=== PATIENT | male | born 1940 | race Caucasian/White ===

== ENCOUNTER 2020-12-21 11:05 | Inpatient (IN) | payer OTHER ==
[~2020-12-21] VITALS: Ht 167.6 cm; Wt 65.9 kg
[2020-12-21 11:56] LABS: BASOPHILS ABSOLUTE AUTO 0.05 K/mm3 (0.00-0.23); BASOPHILS PERCENT AUTO 0 % (0-2); EOSINOPHILS ABSOLUTE AUTO 0.07 K/mm3 (0.00-0.68); EOSINOPHILS PERCENT AUTO 1 % (0-6); Hemoglobin 20.3 g/dL (13.5-17.5); IMMATURE GRAN ABSOLUTE AUTO 0.08 K/mm3 (0.00-0.10); IMMATURE GRAN PERCENT AUTO 1 % (0-1); LYMPHOCYTES PERCENT AUTO 10 % (21-46); MONOCYTES ABSOLUTE AUTO 1.08 K/mm3 (0.16-1.47); MONOCYTES PERCENT AUTO 9 % (4-13); Mean Corpuscular HGB 33.8 pg (26.0-34.0); Mean Corpuscular HGB Conc 33.6 g/dL (31.5-36.5); Mean Corpuscular Volume 101 fL (80-100); Mean Platelet Volume 10.2 fL (9.1-12.4); NEUTROPHILS ABSOLUTE AUTO 9.13 K/mm3 (1.96-9.15); NEUTROPHILS PERCENT AUTO 79 % (41-73); Platelet Count 164 K/mm3 (150-400); RDW Coefficient Variation 17.7 % (11.7-14.2); RDW Standard Deviation 62.4 fL (35.1-46.3); Red Blood Cell Count 6.01 M/mm3 (4.30-5.90); White Blood Cell Count 11.51 K/mm3 (4.00-11.30)
[2020-12-21 12:11] LABS: Hematocrit 60.4 % (37.0-53.0)
[2020-12-21 12:18] LABS: International Normalized Ratio 1.11; Prothrombin Time Results 11.9 Sec (9.7-11.5)
[2020-12-21 12:21] LABS: Alanine Aminotransfer (ALT/SGP 50 U/L (12-78); Albumin, Blood 3.7 g/dL (3.4-5.0); Albumin/Globulin Ratio 0.8 (0.8-1.8); Alk Phos 87 U/L (50-136); Anion Gap 13 mmol/L (6-16); Aspartate Aminotrans (AST/SGOT 61 U/L (12-37); Bilirubin, Total 1.3 mg/dL (0.1-1.0); Blood Urea Nitrogen 77 mg/dL (8-24); Bun/Creatinine Ratio 44.5 (12.0-20.0); CO2, Blood 28 mmol/L (21-32); Calcium, Blood 10.8 mg/dL (8.5-10.1); Chloride, Blood 109 mmol/L (98-108); Creatinine, Blood 1.73 mg/dL (0.60-1.20); Ethanol (Alcohol), Blood, Med <3 mg/dL; Globulin, Blood 4.9 g/dL (2.2-4.0); Glomerular Filtration Rate 38 (60-); Glucose, Blood 130 mg/dL (70-99); Magnesium, Blood 2.6 mg/dL (1.6-2.4); Potassium, Blood 3.8 mmol/L (3.5-5.5); Sodium, Blood 150 mmol/L (136-145); Total Protein, Blood 8.6 g/dL (6.4-8.2)
[2020-12-21 12:29] LABS: Troponin I 0.069 ng/mL (0.000-0.040)
[2020-12-21] MEDS ORDERED: Ramipril10 MG PO (15:23)
[2020-12-21 18:17] LABS: CPK Creatine Kinase 98 U/L (39-308)
[2020-12-21 21:07] LABS: Source, Urine Catheter
[2020-12-21 21:15] LABS: Appearance, Urine Clear (Clear); Blood, Urine 4+ (Neg); Color, Urine Yellow (P-Yellow); Glucose Qualitative, Urine 1+ (Neg); Ketones, Urine 1+ (Neg); Leukocyte Esterase, Urine 1+ (Neg); Nitrite, Urine Neg (Neg); Protein, Urine 2+ (Neg); Specific Gravity, Urine 1.015 (1.003-1.022); Urobilinogen, Urine 1+ (Normal)
[2020-12-21 21:21] LABS: Bilirubin, Urine 1+ (Neg)
[2020-12-21 21:26] LABS: Bacteria Mod /hpf; Squamous Epithelial Cells Few /hpf (Few)
[2020-12-21 21:40] LABS: U Amphetamine Screen Not Detected; U Barbituate Screen Not Detected; U Benzodiazapine Screen DETECTED; U Buprenorphine Screen Not Detected; U Cannabinoids Screen Not Detected; U Cocaine Screen Not Detected; U Methadone Screen Not Detected; U Methamphetamine Screen Not Detected; U Opiates Screen Not Detected; U Oxycodone Screen Not Detected; U Phencyclidine Screen Not Detected; U Propoxyphene Screen Not Detected
--- NOTE | 2020-12-22 05:52 | NUR ---
SHIFT SUMMARY NEW ER ADMIT THIS SHIFT (1999) A&O TO SELF ONLY (NOT ABLE TO ANSWER ADMIT QUESTIONS APPROP), GRISSOM PLACED IN ER (PER REPORT PT UNABLE TO VOID IN ED), HR TACHY (DR BURGOS NOTIFED) LOPRESS ADMIT, CIWA SCORES 13-17 THIS SHIFT, ATIVAN ADMIN PER JUL, MEDICATED FOR BP X1, SLEPT T/O THE NIGHT WAKING EASILY FOR CARE, SLEEPING AT THIS TIME, CALL LIGHT IN REACH, BED ALARM ACTIVE, WILL CONT TO MONITOR UNTIL REPORT GIVEN TO DAY RN.
[2020-12-22 05:54] LABS: BASOPHILS ABSOLUTE AUTO 0.04 K/mm3 (0.00-0.23); BASOPHILS PERCENT AUTO 0 % (0-2); EOSINOPHILS ABSOLUTE AUTO 0.24 K/mm3 (0.00-0.68); EOSINOPHILS PERCENT AUTO 3 % (0-6); Hematocrit 52.3 % (37.0-53.0); IMMATURE GRAN ABSOLUTE AUTO 0.06 K/mm3 (0.00-0.10); IMMATURE GRAN PERCENT AUTO 1 % (0-1); LYMPHOCYTES ABSOLUTE AUTO 0.97 K/mm3 (0.84-5.20); LYMPHOCYTES PERCENT AUTO 11 % (21-46); MONOCYTES ABSOLUTE AUTO 1.23 K/mm3 (0.16-1.47); MONOCYTES PERCENT AUTO 14 % (4-13); Mean Corpuscular HGB 32.6 pg (26.0-34.0); Mean Corpuscular HGB Conc 32.5 g/dL (31.5-36.5); Mean Corpuscular Volume 100 fL (80-100); Mean Platelet Volume 10.2 fL (9.1-12.4); NEUTROPHILS ABSOLUTE AUTO 6.52 K/mm3 (1.96-9.15); NEUTROPHILS PERCENT AUTO 72 % (41-73); Platelet Count 146 K/mm3 (150-400); RDW Coefficient Variation 16.3 % (11.7-14.2); RDW Standard Deviation 61.4 fL (35.1-46.3); Red Blood Cell Count 5.21 M/mm3 (4.30-5.90); White Blood Cell Count 9.06 K/mm3 (4.00-11.30)
[2020-12-22 06:18] LABS: Bun/Creatinine Ratio 46.3 (12.0-20.0); Calcium, Blood 9.6 mg/dL (8.5-10.1); Creatinine, Blood 1.34 mg/dL (0.60-1.20); Magnesium, Blood 2.2 mg/dL (1.6-2.4); Potassium, Blood 3.6 mmol/L (3.5-5.5)
--- NOTE | 2020-12-22 18:41 | NUR ---
PT RESTING IN BED, ORIENTED TO SELF ONLY, WITH INTERM TREMORS TREATED PER EMAR. PT OFFERED PO FLUIDS AND COUGHED EACH TIME. ST EVAL PLACED. NO FOOD OFFERED PT WAS NOT ELERT ENOUGHT TO TEST SWALLOW. SOFT WRIST RESTRAINTS DC'D NO AGGITATION WAS NOTED OR PULLING AT LINES. CWAS TO CONINUE. BED IN LOW POSITION AND CALL LIGHT WITHIN REACH. STAFF WILL CONTINUE TO MONITOR.
--- NOTE | 2020-12-22 18:45 | NUR ---
CONTACTED BY SON AND DAUGHTER THIS SHIFT. DAUGHTER CRIS CAN BE REACHED AT [phone]. NOTIFIED OF FAMILY WANTING A CALL.
--- NOTE | 2020-12-23 04:47 | NUR ---
SHIFT SUMMARY NO ACUTE CHANGES THIS SHIFT, CIWA'S CONT W/ATIVAN ADMIN X3, SPEECH INCOMPREHEN, NO PO MEDS GIVEN D/T AMS STATUS (ASP RISK), REPOS Q2 THIS SHIFT, PT APPEARS TO BE RESTING COMFORTABLE, CALL LIGHT IN REACH, BED ALARM ACTIVE, WILL CONT TO MONITOR UNTIL REPORT GIVEN TO DAY RN.
[2020-12-23 05:37] LABS: Hematocrit 47.1 % (37.0-53.0); Hemoglobin 15.8 g/dL (13.5-17.5); Mean Corpuscular HGB 33.4 pg (26.0-34.0); Mean Corpuscular HGB Conc 33.5 g/dL (31.5-36.5); Mean Corpuscular Volume 100 fL (80-100); Mean Platelet Volume 10.8 fL (9.1-12.4); Platelet Count 132 K/mm3 (150-400); RDW Coefficient Variation 15.7 % (11.7-14.2); RDW Standard Deviation 58.3 fL (35.1-46.3); Red Blood Cell Count 4.73 M/mm3 (4.30-5.90); White Blood Cell Count 7.82 K/mm3 (4.00-11.30)
[2020-12-23 05:54] LABS: BAND PERCENT MAN 12 % (0-8); BASOPHILS PERCENT MAN 0 % (0-2); EOSINOPHILS ABSOLUTE MAN 0.07 K/mm3 (0.00-0.68); EOSINOPHILS PERCENT MAN 1 % (0-6); LYMPHOCYTES ABSOLUTE MAN 1.17 K/mm3 (0.84-5.20); LYMPHOCYTES PERCENT MAN 15 % (21-46); MONOCYTES ABSOLUTE MAN 1.56 K/mm3 (0.16-1.47); MONOCYTES PERCENT MAN 20 % (4-13); SEG NEUTROPHILS PERCENT MAN 52 % (41-73); TOTAL CELLS COUNTED 100
[2020-12-23 06:39] LABS: Anion Gap 5 mmol/L (6-16); Blood Urea Nitrogen 38 mg/dL (8-24); Bun/Creatinine Ratio 35.8 (12.0-20.0); CO2, Blood 29 mmol/L (21-32); Calcium, Blood 8.8 mg/dL (8.5-10.1); Chloride, Blood 109 mmol/L (98-108); Creatinine, Blood 1.06 mg/dL (0.60-1.20); Glomerular Filtration Rate >60 (60-); Glucose, Blood 158 mg/dL (70-99); Potassium, Blood 3.5 mmol/L (3.5-5.5)
[2020-12-23 06:40] LABS: Sodium, Blood 143 mmol/L (136-145)
--- NOTE | 2020-12-23 19:19 | NUR ---
SHIFT SUMMARY PT RESTING QUIETLY AT START OF SHIFT, DURING REPORT. PT WOKE TO VERBAL AND TACTILE STIMULI. SPEECH GARBLED EVERY TIME AWAKE OR WHEN GIVING CARE. PT UNABLE TO FOLLOW ANY DIRECTIONS AT ALL FROM NRS STAFF, EUGENIA CORRAL, OR DR RAZO. PT'S DAUGHTER CALLED FOR UPDATE AND REQUESTED PT BE MADE DNR. DAUGHTER ALSO REQUESTED TO TALK TO DR RAZO. DR NOTIFIED AND PT MADE DNR. DR RAZO ABLE TO CALL DAUGHTER AND DISCUSSED PLAN OF CARE. PT THEN MADE COMFORT CARE. IVF'S AND TELE D/C'D. PT'S DAUGHTER, MARCOS TO BE HERE TOMORROW EVENING, SHE STATED. REPORT GIVEN TO ONCOMING RN. CALL LT IN REACH. BED ALARM ON FOR SAFETY.
--- NOTE | 2020-12-24 04:11 | NUR ---
SHIFT SUMMARY PATIENT ON COMFORT CARE. SOMNOLENT RESPONDING TO STERNAL RUB WITH GARBLED SPEECH. ABLE TO MAKE BASIC NEED KNOWN SUCH LIGHT ON/OFF. BEDREST. GRISSOM PATENT AND DRAINING TO GRAVITY. SON CALLED FOR UPDATE. NO S/SX OF PAIN, SOB, AND N/V. CALL LIGHT IN REACH. BED IN LOWEST POSITION. WILL CONTINUE TO MONITOR UNTIL DAY SHIFT NURSE ASSUME CARE.
--- NOTE | 2020-12-24 18:11 | NUR ---
SHIFT SUMMARY PT MORE AWAKE THIS AFTERNOON AND EVENING THAN HE HAS BEEN FOR A COUPLE OF DAYS. SPEECH IS MUCH MORE CLEAR WELL. VISITOR IN THIS AFTERNOON. DAUGHTER FROM [place] TO BE HERE SHORTLY. PT INFORMED AND GOT A BIG SMILE ON FACE. PT STILL NOT ABLE TO FOLLOW DIRECTIONS TO SWALLOW YET, WHEN ORAL CARE DONE. WAS CO-OP, BUT UNCOORDINATED IN TRYING TO OPEN OR CLOSE MOUTH. DENIED PAIN. DENIED NEEDS. ANSWERED YES WHEN EXPLAINING CALL LT. BED ALARM ON FOR SAFETY. CALL LT IN REACH.
--- NOTE | 2020-12-24 19:41 | NUR ---
PT'S DAUGHTER MARCOS HERE TO SEE HIM. PT WAS AWAKE AND AWARE OF WHO SHE WAS. PT VERY GLAD TO SEE HER. SHE LEFT NUMBER ON WHITE BOARD AND WILL RETURN TOMORROW.
--- NOTE | 2020-12-25 03:51 | NUR ---
SHIFT SUMMARY PATIENT ON COMFORT CARE. DAUGHTER PRESENT IN ROOM AT SHIFT CHANGE. PATIENT AWARE OF WHO HIS DAUGHTER IS. NPO AND NO S/SX OF PAIN, SOB, AND N/V. GRISSOM PATIENT AND DRAINING TO GRAVITY. ABLE TO ANSWER BASIC NEEDS QUESTIONS. CALL LIGHT IN REACH. BED IN LOWEST POSITION AND ALARM ACTIVATED. WILL CONTINUE TO MONITOR UNTIL DAY SHIFT NURSE ASSUMES CARE.
--- NOTE | 2020-12-25 15:05 | NUR ---
ADMIT: 12/21/20 DISCHARGE: DX: Atrial Flutter CC: [email or web address] JOSÉ MIGUEL CALL: RESIDENCE: Home CAREGIVER: Lala Garcia, Child, DX: HTN, GERD, Hyperlipidemia, malignant neuroendocrine tumor, neuropathy DME: none CCM: none HOME HEALTH: none SUMMARY: Update 12/25/20- per chart review with Dr. Lima, pt is on comfort care and was more awake today. Pt apparently fell off a ladder and was found later (5 days). Pt has history of alcohol abuse. Dr. Lima would like to speak with the daughter to discuss care goals and plan after hospital stay. Daughter was in the room this afternoon, informed Dr. Lima. -anisha
--- NOTE | 2020-12-25 18:45 | NUR ---
PATIENT'S DAUGHTER WAS AT THE BEDSIDE FOR 15-[address] RIVERA ORDER HIM A [facility]. SOFT DIET FOR DINNER. THE PATIENT WAS AWAKE ENOUGH TO EAT DINNER. HE DID COUGH A LITTLE BIT. CULINARY SPECIALIST ASSISTED WITH FEEDING. Q2H REPOSITIONING WITH PILLOWS.
--- NOTE | 2020-12-25 19:06 | NUR ---
pt sitting up denies headache or pain or nausea, no tremor noted. Pt can answer some questions. some difficulty tracking. pt flushed.review of monitoring with nursing and to watch for seizure type activity. if pt going on hospice will discuss with devante quality of life and if he still wants alcohol.
--- NOTE | 2020-12-26 03:49 | NUR ---
SHIFT SUMMARY NO ACUTE CHANGES SINCE ASSUMING CARE, PT A&O X2 ASKING T/O SHIFT ABOUT "GOING HOME IN THE MORNING", AWAKE T/O THE NIGHT WATCHING TV, DENIES NAUSEA/PAIN, REPOS Q2, BEDRESTING AT THIS TIME, CALL LIGHT IN REACH, WILL CONT TO MONITOR UNTIL REPORT GIVEN TO DAY RN.
--- NOTE | 2020-12-26 16:37 | NUR ---
Update 12/26/20- pt has chosen to be on comfort care and is ETOH withdrawal. Notes in chart stated that Dr. Lima to discuss living arrangements and hospice. LMOM for daughter Lala to call back to discuss discharge planning. -anisha
--- NOTE | 2020-12-26 16:44 | NUR ---
Shift Summary A/O, slept most of the shift. Awaken to verbal stimuli. Feeder, did not have much for meals. Denies pain, nausea, vomiting. Denies discomfort or needs at this time. Updated daughter, phone number given to Dr. Lima and for to call after 5pm. No new concerns. WCTM.
--- NOTE | 2020-12-27 04:36 | NUR ---
SHIFT SUMMARY ADMITTED FOR NEW ONSET AFIB. DNR CODE. HE FELL AT HOME AND WAS DOWN FOR AN UNKNOWN AMOUNT OF TIME. PLAN IS FOR PHYSICAL & OCCUPATIONAL THERAPIES TO EVALUATE PT'S ABILITIES [place]AC[place]IONS [place] PREVIOUSLY HE HAS BEEN LIVING ALONE. THIS SHIFT HE WAS IMPULSIVE AND SOMEWHAT CONFUSED, BUT REDIRECTABLE. MECHANICAL SOFT DIET, HE IS A FEEDER. HE HAS NOT BEEN OUT OF BED SINCE ADMIT. GRISSOM CATHETER IN PLACE, PATENT AND DRAINING. 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 HE IS ON RA.
[2020-12-27 06:05] LABS: BASOPHILS ABSOLUTE AUTO 0.06 K/mm3 (0.00-0.23); BASOPHILS PERCENT AUTO 1 % (0-2); EOSINOPHILS ABSOLUTE AUTO 0.11 K/mm3 (0.00-0.68); EOSINOPHILS PERCENT AUTO 1 % (0-6); Hematocrit 46.9 % (37.0-53.0); Hemoglobin 16.5 g/dL (13.5-17.5); IMMATURE GRAN ABSOLUTE AUTO 0.14 K/mm3 (0.00-0.10); IMMATURE GRAN PERCENT AUTO 2 % (0-1); LYMPHOCYTES ABSOLUTE AUTO 1.49 K/mm3 (0.84-5.20); LYMPHOCYTES PERCENT AUTO 16 % (21-46); MONOCYTES ABSOLUTE AUTO 1.22 K/mm3 (0.16-1.47); MONOCYTES PERCENT AUTO 13 % (4-13); Mean Corpuscular HGB 33.3 pg (26.0-34.0); Mean Corpuscular HGB Conc 35.2 g/dL (31.5-36.5); Mean Corpuscular Volume 95 fL (80-100); Mean Platelet Volume 10.7 fL (9.1-12.4); NEUTROPHILS PERCENT AUTO 68 % (41-73); Platelet Count 192 K/mm3 (150-400); RDW Coefficient Variation 14.5 % (11.7-14.2); RDW Standard Deviation 50.5 fL (35.1-46.3); Red Blood Cell Count 4.96 M/mm3 (4.30-5.90); White Blood Cell Count 9.32 K/mm3 (4.00-11.30)
[2020-12-27 06:18] LABS: Anion Gap 5 mmol/L (6-16); Blood Urea Nitrogen 19 mg/dL (8-24); Bun/Creatinine Ratio 21.4 (12.0-20.0); CO2, Blood 30 mmol/L (21-32); Calcium, Blood 9.3 mg/dL (8.5-10.1); Chloride, Blood 104 mmol/L (98-108); Creatinine, Blood 0.89 mg/dL (0.60-1.20); Glomerular Filtration Rate >60 (60-); Glucose, Blood 109 mg/dL (70-99); Potassium, Blood 2.6 mmol/L (3.5-5.5); Sodium, Blood 139 mmol/L (136-145)
--- NOTE | 2020-12-27 16:57 | NUR ---
Shift Summary A/Ox2 to self, city/hospital. Thought it was 2019, couldn't recall who the president was. Patient was more awake today, easily awakens with verbal and gentle tactile stimuli. Denies pain. Worked with PT/OT this shift, in chair for some meals. Lemus was draining dark kelsie urine, lemus removed per V.O. from Dr. Lima as patient is no longer on comfort care. 1p c gait and FWW. Pleasant and cooperative. Appetite has improved compared to yesterday. WCTM.
--- NOTE | 2020-12-27 17:27 | NUR ---
12/27/20- Spoke with son Mikael. He states that he would like to have the pt get into rehab in the [facility], close to him and then have him transfer to [facility] so pt can be closer to son. Was provided contact info for Sheryl at [facility], . Will see if they offer rehab and assisted living and/or if they have some SNF that they work with to get the pt into. [place], son is agreeable with trying to get pt into a rehab either here in [place] or even [place]. Son was agreeable and will update him tomorrow after calls made. -anisha
--- NOTE | 2020-12-27 19:45 | NUR ---
pt resting plan is memory care. will speak with daughter on manager terminal goals and quality of life. If pt cancer or dementia worsens in the future. Suggest hospice sooner than later. Hopefully he can reahb and have quality family time and life. If pt declines or expresses desire to drink suggest controlled alcohol intake. It is familar to him and a life long habit forced sobriety may not be a good choice and lead to more aggiation that may be better manged with small amouts of ETOH versus medications. Consideration is based on VA based recovery programs and research of alchol adiction options.
--- NOTE | 2020-12-28 05:32 | NUR ---
SHIFT SUMMARY ADMITTED FOR NEW ONSET AFIB. DNR CODE. PHYSICAL THERAPY TO EVALUATE FOR DC PLAN. HE IS IMPULSIVE AND CONFUSED AT TIMES. I DID CALL THE HOSPITALIST FOR A GENIE VEST RESTRAINT THE PT EXITED HIS BED SEVEN TIMES. HE IS WEAK AND UNSTEADY ON HIS FEET WITH A HX OF FALLS. HE IS A FEEDER. TYLENOL IS AVAILABLE FOR HEADACHES
[2020-12-28 06:34] LABS: Alanine Aminotransfer (ALT/SGP 22 U/L (12-78); Albumin, Blood 2.5 g/dL (3.4-5.0); Albumin/Globulin Ratio 0.6 (0.8-1.8); Alk Phos 70 U/L (50-136); Anion Gap 4 mmol/L (6-16); Aspartate Aminotrans (AST/SGOT 26 U/L (12-37); Bilirubin, Total 0.6 mg/dL (0.1-1.0); Blood Urea Nitrogen 14 mg/dL (8-24); CO2, Blood 31 mmol/L (21-32); Calcium, Blood 8.9 mg/dL (8.5-10.1); Chloride, Blood 101 mmol/L (98-108); Creatinine, Blood 0.93 mg/dL (0.60-1.20); Globulin, Blood 4.3 g/dL (2.2-4.0); Glomerular Filtration Rate >60 (60-); Glucose, Blood 95 mg/dL (70-99); Potassium, Blood 3.3 mmol/L (3.5-5.5); Sodium, Blood 136 mmol/L (136-145); Total Protein, Blood 6.8 g/dL (6.4-8.2)
--- NOTE | 2020-12-28 16:39 | NUR ---
12/28/20- SPOKE WITH [facility], THEY WOULD LIKE TO DO AN ASSESSMENT THROUGH ZOOM OF PT. SPOKE WITH SON AND HE IS IN AGREEMENT TO HAVE ASSESSMENT. ATTEMPTED TO CALL TO SCHEDULE ASSESSMENT. SON IS AGREEABLE WITH REACHING OUT TO OTHER FACILITITES. [facility]- [phone] - UNDER EXECUTIVE ORDER, NOT TAKING PT AT THIS TIME. [facility] - [phone]- SPOKE WITH BETTY, HE STATES THEY DO NOT DO MEDICAID SPEND DOWN FOR PATIENTS. PROVIDED SON SANTINO CONTACT INFORMATION ABOUT FINANCIALS.
--- NOTE | 2020-12-28 17:58 | NUR ---
SHIFT SUMMARY PT AXO TO SELF ONLY. FORGETFUL AND FREQUENTLY ATTEMPTING OOB AND IS HIGH RISK FOR FALLS. PT IN GENIE FOR SAFETY. PT NOT AGGITATED THIS SHIFT. UP TO CHAIR FOR FIRST PART OF SHIFT, TOLERATED WELL. UP WITH 2 ASSIST WITH FWW AND GB. INCONTINENT OF URINE, NOT STOOL THIS SHIFT. IV PATENT AND SALINE LOCKED. NO OTHER CHANGES THIS SHIFT. BED IN LOW POSITION, CALL LIGHT WITHIN REACH.
--- NOTE | 2020-12-29 05:05 | NUR ---
SHIFT SUMMARY ADMITTED FOR NEW ONSET AFIB. DNR CODE. PLAN IS FOR PLACEMENT HE CAN NO LONGER LIVE ALONE AND CARE FOR HIMSELF. HE IS CONFUSED FREQUENTLY, BUT PLEASANT & REDIRECTABLE. GENIE IN PLACE HE ATTEMPTS TO EXIT THE BED FREQUENTLY, HE IS WEAK ON HIS FEET AND A HIGH FALL RISK. HX OF FALLS. HE HAS ULCERS ON HIS BUTTOCKS. PHYSICAL & OCCUPATIONAL THERAPIES ARE ASSISTING WITH THIS PT. MECHANICAL SOFT DIET, SUPERVISION AND/OR ASSISTANCE WITH MEALS. CRUSH LARGE MEDS IN APPLESAUCE OR PUDDING. HX OF MALIGNANT ENDOCRINE TUMOR IN REMISSION FOR PAST FEW YEARS.
[2020-12-29 06:10] LABS: BASOPHILS ABSOLUTE AUTO 0.11 K/mm3 (0.00-0.23); BASOPHILS PERCENT AUTO 2 % (0-2); EOSINOPHILS PERCENT AUTO 3 % (0-6); Hematocrit 48.6 % (37.0-53.0); Hemoglobin 16.9 g/dL (13.5-17.5); IMMATURE GRAN PERCENT AUTO 3 % (0-1); LYMPHOCYTES ABSOLUTE AUTO 1.45 K/mm3 (0.84-5.20); LYMPHOCYTES PERCENT AUTO 19 % (21-46); MONOCYTES ABSOLUTE AUTO 0.84 K/mm3 (0.16-1.47); MONOCYTES PERCENT AUTO 11 % (4-13); Mean Corpuscular HGB 33.5 pg (26.0-34.0); Mean Corpuscular HGB Conc 34.8 g/dL (31.5-36.5); Mean Corpuscular Volume 96 fL (80-100); Mean Platelet Volume 10.7 fL (9.1-12.4); NEUTROPHILS ABSOLUTE AUTO 4.75 K/mm3 (1.96-9.15); NEUTROPHILS PERCENT AUTO 63 % (41-73); Platelet Count 243 K/mm3 (150-400); RDW Coefficient Variation 14.8 % (11.7-14.2); RDW Standard Deviation 52.2 fL (35.1-46.3); Red Blood Cell Count 5.05 M/mm3 (4.30-5.90); White Blood Cell Count 7.55 K/mm3 (4.00-11.30)
[2020-12-29 06:26] LABS: International Normalized Ratio 1.01; Prothrombin Time Results 10.9 Sec (9.7-11.5)
[2020-12-29 06:49] LABS: Alanine Aminotransfer (ALT/SGP 31 U/L (12-78); Albumin, Blood 2.6 g/dL (3.4-5.0); Albumin/Globulin Ratio 0.6 (0.8-1.8); Alk Phos 72 U/L (50-136); Anion Gap 6 mmol/L (6-16); Aspartate Aminotrans (AST/SGOT 31 U/L (12-37); Bilirubin, Total 0.5 mg/dL (0.1-1.0); Blood Urea Nitrogen 16 mg/dL (8-24); Bun/Creatinine Ratio 15.7 (12.0-20.0); CO2, Blood 28 mmol/L (21-32); Calcium, Blood 9.3 mg/dL (8.5-10.1); Chloride, Blood 106 mmol/L (98-108); Creatinine, Blood 1.02 mg/dL (0.60-1.20); Globulin, Blood 4.3 g/dL (2.2-4.0); Glomerular Filtration Rate >60 (60-); Glucose, Blood 91 mg/dL (70-99); Potassium, Blood 3.8 mmol/L (3.5-5.5); Sodium, Blood 140 mmol/L (136-145); Total Protein, Blood 6.9 g/dL (6.4-8.2)
--- NOTE | 2020-12-29 18:33 | NUR ---
review of patients needs with hospitalist and prognosis.
--- NOTE | 2020-12-29 18:44 | NUR ---
SHIFT SUMMARY. A&OX1, PLEASANT AND COOPERATIVE WITH CARE, IMPULSIVE AND FORGETFULL, VERY HIGH FALL RISK, BED/CHAIR ALARMS AND GENIE RESTRAINT UTILIZED FOR SAFETY. PT DENIES PAIN, SOB, N/V. NO S/SX OF DISTRESS OR DISCOMFORT. NO VISITORS TODAY. PT HAD SHOWER. INCONTINENT OF URINE. NO OTHER CHANGES OR CONCERNS.
--- NOTE | 2020-12-30 04:29 | NUR ---
Patient had a pretty good night. He did need to remain in the koko as he was not following commands and was sticking feet through rails to try to get oob. No signs of pain or discomfort noted. Patient is pleasantly confused and cooperative with care.
[2020-12-30 06:55] LABS: Alanine Aminotransfer (ALT/SGP 37 U/L (12-78); Albumin, Blood 2.6 g/dL (3.4-5.0); Albumin/Globulin Ratio 0.6 (0.8-1.8); Alk Phos 73 U/L (50-136); Anion Gap 5 mmol/L (6-16); Aspartate Aminotrans (AST/SGOT 34 U/L (12-37); Bilirubin, Total 0.5 mg/dL (0.1-1.0); Blood Urea Nitrogen 18 mg/dL (8-24); Bun/Creatinine Ratio 17.5 (12.0-20.0); CO2, Blood 30 mmol/L (21-32); Calcium, Blood 9.6 mg/dL (8.5-10.1); Chloride, Blood 100 mmol/L (98-108); Creatinine, Blood 1.03 mg/dL (0.60-1.20); Globulin, Blood 4.4 g/dL (2.2-4.0); Glomerular Filtration Rate >60 (60-); Glucose, Blood 89 mg/dL (70-99); Potassium, Blood 4.1 mmol/L (3.5-5.5); Sodium, Blood 135 mmol/L (136-145)
--- NOTE | 2020-12-30 17:54 | NUR ---
Shift Summary, The patient is A/OX1 to self, he is able to talk with and aswere some questions. He has moved from the bed to the chair multiple times today. He has no acute changes this shift. A koko is still being used because he needs constant reminders and forgets his limitations and tries to get up without using his call light. Currently he is eating in his chair and watching tv.
[2020-12-31 05:45] LABS: Alanine Aminotransfer (ALT/SGP 38 U/L (12-78); Albumin, Blood 2.7 g/dL (3.4-5.0); Albumin/Globulin Ratio 0.6 (0.8-1.8); Alk Phos 75 U/L (50-136); Anion Gap 6 mmol/L (6-16); Aspartate Aminotrans (AST/SGOT 31 U/L (12-37); Bilirubin, Total 0.5 mg/dL (0.1-1.0); Blood Urea Nitrogen 21 mg/dL (8-24); Bun/Creatinine Ratio 19.8 (12.0-20.0); CO2, Blood 30 mmol/L (21-32); Calcium, Blood 10.2 mg/dL (8.5-10.1); Chloride, Blood 100 mmol/L (98-108); Creatinine, Blood 1.06 mg/dL (0.60-1.20); Globulin, Blood 4.6 g/dL (2.2-4.0); Glomerular Filtration Rate >60 (60-); Glucose, Blood 114 mg/dL (70-99); Potassium, Blood 4.2 mmol/L (3.5-5.5); Sodium, Blood 136 mmol/L (136-145); Total Protein, Blood 7.3 g/dL (6.4-8.2)
--- NOTE | 2020-12-31 06:06 | NUR ---
PATIENT UP AND THROUGH RAILS THROUGHOUT THE NIGHT. UNABLE TO MAINTAIN SAFETY IN JUST A GENIE VEST. ONE TIME DOSE OF TRAZODONE 50MG GIVEN WITHOUT RESULT, THEN AN HOUR LATER, 5MG ZYPREXA SEEMED TO DO THE TRICK AND THE PATIENT FINALLY QUIETED DOWN AND AURORA NO LONGER TRIED TO CRAWN OOB AND FELL ASLEEP. NO SIGNS OF PAIN OR DISCOMFORT NOTED OVERNIGHT
--- NOTE | 2020-12-31 17:04 | NUR ---
Shift Summary, Patient has been A/OX1 to self throughout the day. He has been able to answere simple questions. The patient has been in restraints due to safety because he forgets his limitations and tries to ambulate without asking for assistence. The patient has been more active and trying to pull at his koko vest. He has been cooperative when ask to change positions or taking medications. He has been in his chair most of the day sleeping or watching TV. He was asked to ambulate using the walker and no because his stomach was upset and he felt nausious. The patient was given zofran and the patient stated it help a little. He is currently sitting in his chair watching tv.
--- NOTE | 2020-12-31 17:55 | NUR ---
Patient's stomach ache and nausea has subsided after taking zofran per EMR.
--- NOTE | 2020-12-31 20:25 | NUR ---
PT IS ALERT TO PERSON ONLY. PT IS ABLE TO FOLLOW INSTRUCTIONS GIVEN. PT IN A GENIE VEST FOR SAFETY. SIDE RAILS UP X3. PT WAS ATTEMPTING TO CLIMB OUT OF BED, PT IS EASILY REDIRECTABLE. BED ALARM ON. PT IS WEARING AN ATTENDS. FLUIDS AT BEDSIDE. BED IN LOW POSITION.
[2021-01-01 05:23] LABS: BASOPHILS ABSOLUTE AUTO 0.07 K/mm3 (0.00-0.23); BASOPHILS PERCENT AUTO 1 % (0-2); EOSINOPHILS ABSOLUTE AUTO 0.16 K/mm3 (0.00-0.68); EOSINOPHILS PERCENT AUTO 2 % (0-6); Hematocrit 47.2 % (37.0-53.0); Hemoglobin 16.1 g/dL (13.5-17.5); IMMATURE GRAN ABSOLUTE AUTO 0.13 K/mm3 (0.00-0.10); IMMATURE GRAN PERCENT AUTO 1 % (0-1); LYMPHOCYTES ABSOLUTE AUTO 1.63 K/mm3 (0.84-5.20); LYMPHOCYTES PERCENT AUTO 15 % (21-46); MONOCYTES PERCENT AUTO 8 % (4-13); Mean Corpuscular HGB 33.1 pg (26.0-34.0); Mean Corpuscular HGB Conc 34.1 g/dL (31.5-36.5); Mean Corpuscular Volume 97 fL (80-100); Mean Platelet Volume 10.5 fL (9.1-12.4); NEUTROPHILS ABSOLUTE AUTO 7.97 K/mm3 (1.96-9.15); NEUTROPHILS PERCENT AUTO 73 % (41-73); Platelet Count 314 K/mm3 (150-400); RDW Coefficient Variation 15.3 % (11.7-14.2); RDW Standard Deviation 55.3 fL (35.1-46.3); Red Blood Cell Count 4.86 M/mm3 (4.30-5.90); White Blood Cell Count 10.86 K/mm3 (4.00-11.30)
--- NOTE | 2021-01-01 06:42 | NUR ---
SHIFT SUMMARY - PT CONTINUES IN [facility]. PT IS IMPULSIVE, AND HAS TRIED TO CLIMB OUT OF BED. PT IS EASILY REDIRECTABLE. PT IS ALERT TO PERSON, AND HIS BIRTHDATE. PT DIDN'T COMPLAIN OF ANY PAIN/DISCOMFORT TONIGHT. PT TOLERATED PO FLUIDS. CALL LIGHT WITHIN REACH. BED IN LOW POSITION. BED ALARM ON FOR PT SAFETY. FLUIDS AT BEDSIDE.
--- NOTE | 2021-01-01 10:03 | NUR ---
01/01/21- Yeni Reese-Assessment scheduled for tomorrow at 2pm. They requested that family try to be at this appt. [facility] to [facility] call [facility]isa, she took down name and number and will have web art director [facility], it's in the admission director's box for review. Will call backTouch of [facility] - Packet still in review, Admissions out of town and will review on Friday. LMOM of Son Mikael to call back and updated him on status with packets and asked if he could be here tomorrow when Yeni Reese will be here to assess the pt. for placement. -anisha
--- NOTE | 2021-01-01 16:24 | NUR ---
PT IS ALERT ORIENTED TO SELF ONLY, THE PT IS UP WITH ASSIST TO THE CHAIR. THE PT HAS BEEN UO IN THE CHAIR FOR BREAKFAST AND LUNCH AT THIS TIME HE IS IN THE BED,. THE PT IS A HIGH FALL RISK AND DOES NOT USE THE CALL LIGHT FOR HRLP. THE PT IS IN A GENIE VEST FOR HIS SAFTEY AT THIS TIME. THE PT APPEARS TO BE BREATHING EASILY ON RA AT THIS TIME. THE PT DENIES ANY PAIN SO FAR THIS SHIFT. WILL CONTINUE TO MONITOR AND ASSESS FOR CHANGES
[2021-01-02 05:39] LABS: BASOPHILS ABSOLUTE AUTO 0.09 K/mm3 (0.00-0.23); BASOPHILS PERCENT AUTO 1 % (0-2); EOSINOPHILS ABSOLUTE AUTO 0.23 K/mm3 (0.00-0.68); EOSINOPHILS PERCENT AUTO 3 % (0-6); Hematocrit 46.4 % (37.0-53.0); IMMATURE GRAN ABSOLUTE AUTO 0.11 K/mm3 (0.00-0.10); IMMATURE GRAN PERCENT AUTO 1 % (0-1); LYMPHOCYTES ABSOLUTE AUTO 1.46 K/mm3 (0.84-5.20); LYMPHOCYTES PERCENT AUTO 17 % (21-46); MONOCYTES PERCENT AUTO 10 % (4-13); Mean Corpuscular HGB Conc 34.5 g/dL (31.5-36.5); Mean Corpuscular Volume 96 fL (80-100); Mean Platelet Volume 10.2 fL (9.1-12.4); NEUTROPHILS ABSOLUTE AUTO 5.74 K/mm3 (1.96-9.15); NEUTROPHILS PERCENT AUTO 68 % (41-73); Platelet Count 338 K/mm3 (150-400); RDW Coefficient Variation 15.1 % (11.7-14.2); RDW Standard Deviation 53.1 fL (35.1-46.3); Red Blood Cell Count 4.85 M/mm3 (4.30-5.90); White Blood Cell Count 8.43 K/mm3 (4.00-11.30)
[2021-01-02 06:05] LABS: Alanine Aminotransfer (ALT/SGP 34 U/L (12-78); Albumin, Blood 2.7 g/dL (3.4-5.0); Albumin/Globulin Ratio 0.6 (0.8-1.8); Alk Phos 68 U/L (50-136); Anion Gap 5 mmol/L (6-16); Aspartate Aminotrans (AST/SGOT 29 U/L (12-37); Bilirubin, Total 0.8 mg/dL (0.1-1.0); Blood Urea Nitrogen 26 mg/dL (8-24); Bun/Creatinine Ratio 24.1 (12.0-20.0); CO2, Blood 28 mmol/L (21-32); Calcium, Blood 9.6 mg/dL (8.5-10.1); Chloride, Blood 103 mmol/L (98-108); Creatinine, Blood 1.08 mg/dL (0.60-1.20); Globulin, Blood 4.2 g/dL (2.2-4.0); Glomerular Filtration Rate >60 (60-); Glucose, Blood 83 mg/dL (70-99); Magnesium, Blood 2.1 mg/dL (1.6-2.4); Phosphorus, Blood 4.1 mg/dL (2.5-4.9); Potassium, Blood 5.1 mmol/L (3.5-5.5); Sodium, Blood 136 mmol/L (136-145); Total Protein, Blood 6.9 g/dL (6.4-8.2)
--- NOTE | 2021-01-02 06:44 | NUR ---
SHIFT SUMMARY PATIENT ALERT AND ORIENTED TO SELF ONLY. NO COMPLAINTS OF PAIN OR SHORTNESS OF BREATH. CONTINUES TO BE IN GENIE VEST DUE TO HIGH FALL RISK AND CONFUSION. BED IN LOWEST POSITION WITH WHEELS LOCKED AND ALARM ON. CALL LIGHT WITHIN REACH. REPORT GIVEN TO ONCOMING RN.
--- NOTE | 2021-01-02 15:47 | NUR ---
PT IS NOT ON COMFORT CARE ANY LONGER, AND FAMILY ARE SEEKING PLACEMENT. CAR HIKER INVOLVED.
--- NOTE | 2021-01-02 17:59 | NUR ---
Update 01/02/21: Staff with [facility] came to provide assessment this afternoon. They have declined to accept pt. at this time due to higher level of need than they would be able to provide. They are reaching out to their affiliated facility in [place] [facility]. It is likely that the need will be too high for [place] as well. Spoke with patient's son who is agreeable to pursuing long-term memory care in [place]. Pt. has Medicaid with long-term care approval. wafer polishing lead worker is Dylan Meeks . Once accepted to a facility, we will need to ensure that all needed Medicaid information is faxed to facility through case supervisor. Packets sent for review to Mahsa with [facility] and Marlen with [facility]. Both facilities have bed availability.
--- NOTE | 2021-01-02 19:58 | NUR ---
END OF SHIFT SUMMARY: PATIENT UNABLE TO ANSWER IF HE WAS IN PAIN OR NOT. PATIENT APPEARED COMFORTABLE THROUGHOUT THE SHIFT. PATIENT CALM AND PLEASANT WITH THE STAFF. PATIENT UNSTEADY WITH STANDING AND REQUIRED ASSISTANCE WITH THE USE OF THE WALKER. PATIENT EATS INDEPENDENTLY ONCE THE TRAY IS SET UP. PATIENT UP MULTIPLE TIMES WITH STAFF. PATIENT TOLERATED WELL. PATIENT ABLE TO VERBALIZE WITH THE RN THAT HE NEEDED TO VOID AT ONE POINT. PATIENT WAS VISITED BY A EDUCATIONAL SPECIALIST FROM THE ORGANIZATION THAT RUNS THE [employer]. SHE REPORTED THAT SHE WILL ASSIST WITH A DISCHARGE TO THE [employer] FOR THIS PAIN. SHE IS ALREADY IN CONTACT WITH OSKAR, GRAPHIC DESIGNER WITH [employer]. PATIENT'S DAUGHTER GIVEN AN UPDATE. SHE BROUGHT IN CLOTHES FOR THE PATIENT.
--- NOTE | 2021-01-03 06:40 | NUR ---
SHIFT SUMMARY PATIENT ALERT AND ORIENTED TO SELF. NO ACUTE ISSUES NOTED. BED IN LOWEST POSITION WITH WHEELS LOCKED AND ALARM ON. CALL LIGHT WITHIN REACH. REPORT GIVEN TO ONCOMING RN.
--- NOTE | 2021-01-03 17:56 | NUR ---
Update 01/03/21: Pt. under review by [facility]. Mahsa with [facility] will be talking with the family and will get back to me HUNG regarding placement. Please review previous notes for additional details.
--- NOTE | 2021-01-03 20:01 | NUR ---
END OF SHIFT SUMMARY: PATIENT APPEARED COMFORTABLE THROUGHOUT THE SHIFT. PATIENT CALM AND COOPERATIVE WITH THE STAFF. PATIENT CONTINUES TO PULL AT RESTRAINTS AT TIMES AND TO ATTEMPT TO GET UP FREQUENTLY WITHOUT ASSISTANCE. PATIENT REQUIRES VERBAL AND PHYSICAL REDIRECTION. PATIENT UP TO THE CHAIR MULTIPLE TIMES. PATIENT WORKED WITH PT AND OT.
--- NOTE | 2021-01-04 06:49 | NUR ---
SHIFT SUMMARY PT AWAKE AND IMPULSIVE T/O THE NIGHT, FALL THIS SHIFT @ 2230 (MD NOTIFIED), 4 RAILS ADDED TO RESTRAINT ORDER, BEDRESTING AT THIS TIME, CALL LIGHT IN REACH, BED ALARM ACTIVE, WILL CONT [facility]IL REPORT GIVEN TO DAY RN.
--- NOTE | 2021-01-04 08:35 | NUR ---
Update 01/04/21 0830: Received message with questions/concerns from [facility]. Will review these with Dr. Melara this morning and return call to Mahsa with [facility].
--- NOTE | 2021-01-04 15:31 | NUR ---
RETURNED CALL TO FAMILY, CRIS, LEFT MESSAGE-NO ANSWER
--- NOTE | 2021-01-04 17:34 | NUR ---
SHIFT SUMMARY RESTLESS/CONSTANTLY IN MOTION. UP TO CHAIR IN GENIE MOST OF SHIFT. AWAKE ALL DAY, AND LAST NIGHT, PER HS RN. ORDER FOR [facility] OBTAINED.
--- NOTE | 2021-01-04 17:39 | NUR ---
Update 01/05/21: Per Mahsa with [facility], they will be moving forward with placement for pt. Mahsa provided Friday or Friday next week as anticipated admit date. Requested that the admit date be moved up to tomorrow if at all possible. Per Mahsa, Friday is likely the earliest that they will be able to accept him. No further information needed by [facility] from [place] or [facility] at this time. Mahsa will be contacting patient's son Mikael to request that he complete the documents to begin process.
--- NOTE | 2021-01-05 04:11 | NUR ---
SHIFT SUMMARY NO ACUTE CHANGES THIS SHIFT, NO C/O OF ANY KIND, ASLEEP SINCE 14 WAKING BRIEFLY A FEW TIMES, SLEEPING AT THIS TIME, CALL LIGHT IN REACH, ALARM ACTIVE, WILL CONT TO MONITOR UNTIL REPORT GIVEN TO DAY RN.
--- NOTE | 2021-01-05 11:35 | NUR ---
Update 01/05/21: Per chart review, patient's condition has remained consistently the same with minimal improvement. Needs at discharge - still anticipating need for O2 sent to [facility] and possible need for Xarelto or Eliquise samples and discount card.
--- NOTE | 2021-01-06 06:48 | NUR ---
SHIFT SUMMARY PATIENT ALERT AND ORIENTED TO SELF ONLY. SHOWED NO SIGNS OF PAIN OR SHORTNESS OF BREATH. NO ACUTE ISSUES NOTED OVERNIGHT. BED IN LOWEST POSITION WITH WHEELS LOCKED AND ALARM ON. CALL LIGHT WITHIN REACH. REPORT GIVEN TO ONCOMING RN.
--- NOTE | 2021-01-06 18:48 | NUR ---
PT RESTING IN BED AND CONTINUES WITH Q2 RESTRAINT MANAGMENT. ORIENTED TO SELF WITH CONFUSION. NO OTHER CHANGES. STAFF WILL CONTINUE TO MONITOR.
--- NOTE | 2021-01-07 04:36 | NUR ---
SHIFT SUMMARY ALERT, YET CONFUSED. CONTINUES TO ATTEMPT TO EXIT BED. GENIE VEST IN PLACE FOR SAFETY. INCT OF BLADDER; ATTENDS IN PLACE. DID NOT APPEAR TO REST THIS NIGHT. NO ACUTE CHANGES NOTED. BED REMAINS IN LOWEST POSITION; ALARM ON. CALL LIGHT WITHIN REACH. CONTINUE WITH CURRENT PLAN OF CARE.
--- NOTE | 2021-01-07 18:48 | NUR ---
PT RESTING IN BED MAKING NO COMPLAINTS AT THIS TIME. REMAINS ORIENTED TO SELF AND FAMILY. COOPERATIVE WITH CARE. WILL CONT TO MONITOR.
--- NOTE | 2021-01-08 05:28 | NUR ---
SHIFT SUMMARY ALERT, CONFUSED AND NONSENSICAL AT TIMES. COOPERATIVE WITH CARE AND REDIRECTABLE. NO ACUTE CHANGES NOTED OVERNIGHT. REMAINS IN GENIE VEST FOR SAFETY. APPEARED TO REST MUCH OF THE NIGHT. BED REMAINS IN LOWEST POSITION; ALARM ON. CALL LIGHT AND BELONGINGS WITHIN REACH. CONTINUE WITH CURRENT PLAN OF CARE. REPORT TO ONCOMING RN.
--- NOTE | 2021-01-08 15:45 | NUR ---
Update 01/08/21: Mahsa with [facility] met with patient today to perform assessment. Pt. has been officially accepted for a move in date on Friday01/10/21. Request from facility for diagnosis list. I will send that over. Will request Dr. Batres to sign move-in form. Mahsa has already been in contact with son Mikael.
--- NOTE | 2021-01-08 17:49 | NUR ---
SHIFT SUMMARY: PT A/O TO SELF, PLEASANT AND COOPERATIVE. PT IMPULSIVE AND FORGERTFUL. PT AMBULATED HALLS TWICE TODAY AND WAS STEADY ON FEET WITH GAIT BELT, STANDBY ASSIST AND WALKER. PT ZAYRA WELL. PT HAD NO PAIN/N/V/D. NO ACUTE CONCERNS. NEWELL CT DID EVAL TODAY AND WILL HAVE BED READY WED OR THUR.
--- NOTE | 2021-01-09 04:30 | NUR ---
ELECTRO TECH SUMMARY PT WAS UP IN RECLINER UNTIL LATE LAST NIGHT WITH GENIE VEST FOR FALL PREVENTION. ASSISTED INTO BED AND GENIE ON WITH 4 RAILS UP. REMAINS HIGH FALL RISK AND DOES NOT REDIRECT WELL. A/O TO SELF AND THOUGH HE ANSWERS QUESTIONS APPROPRIATELY, DOES NOT SEEM TO REMEMBER AND TRIES TO GET OUT OF BED AT INTERVALS. INCONT OF URINE AND LINEN CHANGED. CALL LIGHT IN REACH. WILL CONTINUE TO MONITOR
--- NOTE | 2021-01-09 08:37 | NUR ---
Update 01/09/21: Pt. has been accepted for move-in date 01/10/21 at [facility] by Director Mahsa. Family has been notified. Facility requested diagnosis list and move-in paperwork. Faxing this am. Towards the end of the day I will request D/C orders to be added to chart, schedule transport, and COVID test will be requested.
--- NOTE | 2021-01-09 12:13 | NUR ---
WOUND CARE TO R ELBOW COMPLETED. WOUND WASHED AND COVERED WITH BANDAGE. NO S/S OF INFECTION.
--- NOTE | 2021-01-09 16:58 | NUR ---
Update 01/09/21: Pt. accepted at [facility] for long-term care. All paperwork has been completed and faxed to facility. COVID test order and results will be faxed to facility tomorrow morning. Discharge paperwork faxed to Mahsa at [facility]. Transportation arranged through [facility] for wheelchair van transport at 3:30 pm. Requested earlier transport, but they are unable to provide at this time due to staff shortage. Packet will be placed outside room in lock box in the am.
--- NOTE | 2021-01-09 18:22 | NUR ---
SHIFT SUMMARY: PT A/O TO SELF. PLEASANTLY CONFUSED AND IMPULSIVE DUE TO FORGETFULNESS. PT REMAINS IN GENIE FOR HIS SAFETY. PT AMBULATED HALLS TWICE TODAY WITH PT/GAIT BELT AND WALKER AND TOLERATED WELL. PLAN IS TO DC TO [facility] TOMORROW. NO ACUTE INCIDENTS TODAY.
[2021-01-09] MEDS ORDERED: ASPI81CH PO (18:36)
[2021-01-09] MEDS ORDERED: MEMA5TAB PO (18:37)
[2021-01-09] MEDS ORDERED: METO50 PO (18:37)
[2021-01-09] MEDS ORDERED: MULVITA PO (18:37)
[2021-01-09] MEDS ORDERED: OLAN5A MM (18:39)
[2021-01-09] MEDS ORDERED: QUET25 PO (18:39)
[2021-01-09] MEDS ORDERED: B-1100 M1 PO (18:40)
--- NOTE | 2021-01-10 04:04 | NUR ---
PT COOPERATIVE WITH PROCEDURE FOR SPECIMEN FOR COVID TEST. SPECIMEN TAKEN TO LAB.
[2021-01-10 04:43] LABS: SARS-Cov-2 (COVID-19) PCR, MMC NEGATIVE (NEGATIVE)
--- NOTE | 2021-01-10 04:56 | NUR ---
ERADICATOR SUMMARY PT HAS BEEN RESTING AT INTERVALS SINCE ASSISTED TO BED FROM CHAIR AT BEDSIDE AT . [facility]IE VESET AND RAILS UP X 4 FOR SAFETY HE REMAINS HIGH FALL RISK AND DOES NOT REDIRECT WELL DUE TO REPORTED DEMENTIA. AFFECT CHEERFUL WHEN CONVERSING WITH STAFF. COVID SPECIMEN OBTAINED AND TAKEN TO LAB, SCHEDULED TO BE DISCHARGED LATER TODAY - SEE MD ORDERS. CALL LIGHT IN REACH
--- NOTE | 2021-01-10 12:37 | NUR ---
Update 01/10/21: Transport scheduled for pt. at 3:30 pm (earliest transport available) with [facility] via wheelchair van. Notified facility and sent fax including D/C paperwork. D/C packet also placed in lock box outside of patient's room for EMS crew to take to facility. Patient's family is aware that pt. will be moving into [address] today. No further needs at this time. See previous notes for additional details. [facility] team will schedule hospital F/U with facility staff within 24-48 hours during F/U phone call.
--- NOTE | 2021-01-10 14:54 | NUR ---
REPORT GIVEN TO OSKAR RINCON AT [facility] FOR DISCHARGE OF MR. SUN SCHEDULED AT 0547.
--- NOTE | 2021-01-10 15:43 | NUR ---
DC NOTE: PT PICKED UP BY TRANSPORT COMPANY TO TAKE TO [facility]. PT BELONGINGS SENT WITH PT.
== END 2021-01-10 15:28 | disposition home or self-care (01) | DRG 897 ==
LOC: ER 11:05 → MEDS 15:20
PROVIDERS: Family Medicine; Hospitalist; Internal Medicine; Student in an Organized Health Care Education/Training Program; ADMIT Internal Medicine
DX: F10.27 Alcohol dependence with alcohol-induced persisting dementia (principal); I48.92 Unspecified atrial flutter; N17.9 Acute kidney failure, unspecified; C7A.8 Other malignant neuroendocrine tumors; E87.0 Hyperosmolality and hypernatremia; E51.2 Wernicke's encephalopathy; Z66 Do not resuscitate; Z51.5 Encounter for palliative care; Z20.822 Contact with and (suspected) exposure to COVID-19; Z78.1 Physical restraint status; I48.91 Unspecified atrial fibrillation; E87.6 Hypokalemia; F10.20 Alcohol dependence, uncomplicated; E86.0 Dehydration; R77.8 Other specified abnormalities of plasma proteins; D50.9 Iron deficiency anemia, unspecified; R82.71 Bacteriuria; K21.9 Gastro-esophageal reflux disease without esophagitis; I10 Essential (primary) hypertension; E78.5 Hyperlipidemia, unspecified; F17.210 Nicotine dependence, cigarettes, uncomplicated; Z86.73 Personal history of transient ischemic attack (TIA), and cerebral infarction without residual deficits; Z79.899 Other long term (current) drug therapy
CPT/HCPCS: 36415; 51702; 70450; 71046; 72125; 72128; 76770; 80048; 80053; 81001; 82140; 82550; 82607; 82746; 83735; 83880; 84100; 84443; 84484; 85025; 85610; 87077; 87086; 87186; 92610; 93005; 93010; 96361; 96374; 97110; 97116; 97162; 97166; 97530; 97535; 99285-25; A9270; G0480; J0360; J1650; J2060; J2765; J3480; J7030; J7042; J7050; J7070; U0004

== ENCOUNTER 2021-05-08 07:48 | Emergency (ER) | payer OTHER ==
[~2021-05-08] VITALS: Ht 167.6 cm; Wt 72.6 kg
[~2021-05-08 07:48] MED LIST: ASPI81CH PO; B-1100 M1 PO; MEMA5TAB PO; METO50 PO; MULVITA PO; OLAN5A MM; QUET25 PO; Ramipril10 MG PO
== END 2021-05-08 09:32 | disposition home or self-care (01) ==
LOC: ER 07:48
DX: S66.911A Strain of unspecified muscle, fascia and tendon at wrist and hand level, right hand, initial encounter (principal); W18.39XA Other fall on same level, initial encounter; Z79.899 Other long term (current) drug therapy; Z79.82 Long term (current) use of aspirin; I10 Essential (primary) hypertension; K21.9 Gastro-esophageal reflux disease without esophagitis; E78.5 Hyperlipidemia, unspecified
CPT/HCPCS: 73110; 99283-25; A9270

== ENCOUNTER → 2021-10-08 | Outpatient (CLI) | payer OTHER | END | disposition home or self-care (01) | LOC: LAB SHORT 12:44 → PLD 12:44 | DX: D48.5 Neoplasm of uncertain behavior of skin (principal) | CPT/HCPCS: 88305 ==

== ENCOUNTER → 2023-03-24 | Outpatient (CLI) | payer OTHER | END | disposition home or self-care (01) | LOC: LAB SHORT 12:23 → PLD 12:23 | DX: C44.319 Basal cell carcinoma of skin of other parts of face (principal) | CPT/HCPCS: 88305 ==

== ENCOUNTER → 2023-04-21 | Outpatient (CLI) | payer OTHER | END | disposition home or self-care (01) | LOC: LAB 14:29 → LAB SHORT 14:29 | DX: C44.319 Basal cell carcinoma of skin of other parts of face (principal) | CPT/HCPCS: 88305 ==

== ENCOUNTER → 2023-09-22 | Outpatient (CLI) | payer OTHER | END | disposition home or self-care (01) | LOC: LAB 14:38 → LAB SHORT 14:38 | DX: L57.0 Actinic keratosis (principal) | CPT/HCPCS: 88305 ==

== ENCOUNTER → 2023-10-20 | Outpatient (CLI) | payer OTHER ==
[2023-10-20 13:12] LABS: Source, Urine Clean Catch
[2023-10-20 14:17] LABS: Appearance, Urine Clear (Clear); Bilirubin, Urine Neg (Neg); Blood, Urine Neg (Neg); Color, Urine Yellow (P-Yellow); Glucose Qualitative, Urine Neg (Neg); Ketones, Urine Neg (Neg); Leukocyte Esterase, Urine Neg (Neg); Nitrite, Urine Neg (Neg); Protein, Urine Neg (Neg); Specific Gravity, Urine 1.025 (1.003-1.022); Urobilinogen, Urine NORM (Normal)
== END ==
LOC: LAB 13:10 → LAB SHORT 13:10
PROVIDERS: Physician Assistant
DX: N39.0 Urinary tract infection, site not specified (principal)
CPT/HCPCS: 81003